=== PATIENT | female | born 1980 | race Caucasian/White ===

== ENCOUNTER → 2017-09-10 | Outpatient (CLI) | payer BC ==
[~2017-09-10] MED LIST: ACHD5005 PO; HYOS0.1283 SL; ONDA8TAB13 PO
--- NOTE | 2017-09-10 15:04 | Diagnostic Imaging Report ---
PROCEDURE: CT urinary tract, rule out kidney stone. TECHNIQUE: Multiple contiguous axial images were obtained through the abdomen and pelvis without the use of intravenous contrast. INDICATION: Left lower quadrant pain and hematuria x 2 weeks. COMPARISON: Prior CT from 02/24/2015. FINDINGS: The lung bases are clear. No discrete liver mass is detected. The gallbladder appears to be contracted. The pancreas and spleen are unremarkable. No adrenal mass is detected. Bilateral nonobstructing renal calculi are noted. The largest calculus is in the left lower pole measuring 6 mm. No hydronephrosis is seen. No definite ureteral calculi or ureteral dilatation is detected. The aorta is nonaneurysmal. The small and large bowel loops are of normal caliber. There is no ascites. The bladder is unremarkable. There appears to be a large septated cystic mass versus two adjacent cystic masses in the right ovary which, in aggregate, measure 4.9 x 3.4 cm. The left adnexa is unremarkable. No free fluid is seen. IMPRESSION: 1. Bilateral nonobstructing nephrolithiasis. 2. Right adnexal cyst, as described, which could be further characterized with sonography if clinically indicated. 3. No other significant abnormality is seen. Dictated by: Dictated on workstation # [id number]
== END ==
LOC: RAD 14:19
PROVIDERS: ATTEND Internal Medicine
DX: N20.0 Calculus of kidney (principal); N83.8 Other noninflammatory disorders of ovary, fallopian tube and broad ligament
CPT/HCPCS: 74176

== ENCOUNTER → 2022-03-09 | Outpatient (CLI) | payer BC, OTHER ==
--- NOTE | 2022-03-09 08:22 | Diagnostic Imaging Report ---
PROCEDURE: CT abdomen and pelvis without contrast. TECHNIQUE: Multiple contiguous axial images were obtained through the abdomen and pelvis without the use of intravenous contrast. Auto Exposure Controls were utilized during the CT exam to meet ALARA standards for radiation dose reduction. INDICATION: Bilateral flank pain and hematuria. Correlation is made with prior CT from 09/10/2017. The lung bases are clear. The liver and gallbladder are unremarkable. There is no biliary ductal dilatation. The pancreas and spleen are unremarkable. No adrenal mass is detected. There are bilateral nonobstructing renal calculi. The largest on the right measures 5 mm. The largest on the left is in the lower pole measuring 6 mm. There appears to be 2 calculi in the distal right ureter largest approximately 3 mm in size. This is just above the UVJ. No bladder calculi are seen. Aorta is unremarkable. Bowel loops are of normal caliber. No abdominal or pelvic ascites is seen. Uterus is unremarkable. IMPRESSION: Bilateral nonobstructing nephrolithiasis. In addition, there appear to be 2 distal left ureteric calculi without significant hydroureteronephrosis. No bladder calculi are detected. Dictated by: Dictated on workstation # [id number]
== END ==
LOC: RAD 07:26
PROVIDERS: ATTEND Family Medicine
DX: N20.0 Calculus of kidney (principal)
CPT/HCPCS: 74176